=== PATIENT | male | born 1970 | race Caucasian/White ===

== ENCOUNTER 2022-01-15 14:29 | Emergency (ER) | payer OTHER, MEDICAID ==
[~2022-01-15] VITALS: Ht 162.6 cm; Wt 65.3 kg
[2022-01-15 14:45] VITALS: BP 110/79
[2022-01-15 16:31] VITALS: BP 137/88
--- NOTE | 2022-01-15 16:32 | NUR ---
GTUBE REPLACED, CONFIRMED PLACEMENT. CAREGIVER VERBALIZES DC INSTRUCTIONS. NAD. STABLE ON DC
== END 2022-01-15 16:31 | disposition home or self-care (01) ==
LOC: MED 14:29
DX: K94.23 Gastrostomy malfunction (principal); E78.5 Hyperlipidemia, unspecified
CPT/HCPCS: 43762; 74240; 99284; Q0092